=== PATIENT | female | born 1960 | race Caucasian/White ===

== ENCOUNTER 2019-06-21 14:42 | Emergency (ER) | payer OTHER ==
[~2019-06-21] VITALS: Ht 160 cm; Wt 92.6 kg
[2019-06-21 14:44] VITALS: BP 144/86
[2019-06-21] MEDS ORDERED: IBUPROFEN 800 MG TABLET ONE (17:39)
[2019-06-21] MEDS ORDERED: IBUPROFEN 600 MG TABLET PO ONE ×2 (18:00→18:30)
[2019-06-21] MEDS ORDERED: IBUPROFEN 800 MG TABLET PO ONE (18:30)
== END 2019-06-21 18:14 | disposition home or self-care (01) ==
LOC: ED 17:45
DX: S16.1XXA Strain of muscle, fascia and tendon at neck level, initial encounter (principal); W01.0XXA Fall on same level from slipping, tripping and stumbling without subsequent striking against object, initial encounter; Y93.89 Activity, other specified; Y92.009 Unspecified place in unspecified non-institutional (private) residence as the place of occurrence of the external cause; Y99.8 Other external cause status; G89.11 Acute pain due to trauma; M54.5 Low back pain; S09.8XXA Other specified injuries of head, initial encounter; R51 Headache
CPT/HCPCS: 70450; 72125; 72131; 99284